=== PATIENT | female | born 1970 | race Caucasian/White ===

== ENCOUNTER → 2022-06-22 | Outpatient (CLI) | payer OTHER ==
--- NOTE | 2022-06-22 16:50 | P.SLEEP ---
History of Present Illness DATE: 06/22/2022 CONSULTATION/NEW PATIENT EVALUATION HISTORY OF PRESENT ILLNESS/SLEEP-WAKE EVALUATION: 52-year-old lady had been evaluated in the sleep center for possible obstructive sleep apnea hypopnea syndrome. SLEEP SCHEDULE: Usually sleep schedule from 910 PM to 79 AM. FALLING ASLEEP: No problems with falling asleep, no TV in bedroom. DURING SLEEP: Patient has loud snoring, witnessed episodes of stop breathing during the sleep, multiple awakenings from sleep up to 10 times with nocturia, positive history of restless leg symptoms, sleep talking, dry mouth, heartburn, sweating. No history of hypnogogical hallucinations, sleep paralysis, or cataplexy. DURING THE DAY/WAKE STATE: In the morning patient wake up tired, falling asleep during the day, has problems with concentration, irritability, depression and anxiety. [place] sleepiness scale is extremely high of 2224. Patient may take up to 2 naps during the day. PAST MEDICAL HISTORY: Hypertension, hyperlipidemia, asthma, lumbar arthritis, acid reflux, thyroid tumor, Chiary malformation, iron deficiency anemia. PAST SURGICAL HISTORY: Left fifth digit surgery. MEDICATIONS: Lisinopril 10 mg once a day, Norvasc 2.5 mg once a day, Prilosec 20 mg once a day, melatonin. SOCIAL HISTORY: Negative for smoking, alcohol consumption occasional. FAMILY HISTORY: Heart problems. REVIEW OF SYSTEMS: Loud snoring, multiple awakenings from sleep, significant excessive daytime sleepiness. No fevers. No double vision. No recent chest pain. No shortness of breath. No abdominal pain. No bleeding episodes. No blood in urine. No seizure episodes. PHYSICAL EXAMINATION: GENERAL: A pleasant patient without any distress. VITAL SIGNS: BP 155/87 , HR 90 , RR 16 , weight 216.2 pounds, height 5 foot 0.5 inches, body mass index 41.4 , temperature 98.4, oxygen saturation at room air 96%. HEENT: PERRLA, EOMI. Evaluation of oropharynx showed tongue protrudes midline, low position of soft palate Mallampati 4. NECK: Supple. No JVD. Thyroid is palpable on the left side. 16 inches in circumference. LUNGS: Clear to percussion and to auscultation. Good air exchange. No wheezing or rhonchi. HEART: S1, S2 regular. No murmurs, gallops or rubs. ABDOMEN: Soft and nontender. Bowel sounds are present. No organomegaly appreciated. Obese EXTREMITIES: No clubbing or cyanosis. NEW PATIENT ESCORT: Awake, alert, and oriented x3. Cranial nerves 2 to 7 intact. There is no fasciculation or atrophy noted. No focal deficits observed. ASSESSMENT: 1. Loud snoring, multiple awakenings from sleep, extremely low position of soft palate Mallampati 4, sleepiness, wide neck 16 inches in circumference. Obstructive sleep apnea hypopnea syndrome. 2. Obesity body mass index 41.4. 3. Extremely high sleepiness following results of [place] Sleepiness Scale 2224 dictated necessity to include narcolepsy and idiopathic hypersomnia in differential diagnosis. 4. History of restless leg symptoms. 5 Chiary malformation. 6 . Thyroid tumor. 7. History of asthma. 8. Acid reflux. 9 . History of iron deficiency anemia. 10. Hyperlipidemia. 11. History of sinuses problems. PLAN: 1. Polysomnography for evaluation of patient's breathing during sleep. 2. CPAP/BiPAP titration if sleep study confirms obstructive sleep apnea- hypopnea syndrome. 3. Preferable position during sleep on the side. 4. No driving if patient feels any sleepiness. Patient is aware of civil and criminal liability for unsafe driving. 5. Sleep hygiene with regular sleep time for at least 7.5-8 hours. 6. Watching and losing weight. Thank you very much for referring this patient for consultation. Sincerely, Yaya Hairston MD, PhD, FAASM. Diplomat of [place] [employer], Sleep Medicine Board by [place] [employer] [place] [employer] Equipment Service Technician of [facility] [place] Sleep Note - Sleep Note Sleep Note: Temperature: Pulse Rate: Respiratory Rate: Blood Pressure: SpO2: Height: Weight: BMI: Neck Circumference:
== END | disposition home or self-care (01) ==
LOC: SLEEP 15:14
PROVIDERS: ATTEND Internal Medicine
DX: G47.33 Obstructive sleep apnea (adult) (pediatric) (principal); D49.7 Neoplasm of unspecified behavior of endocrine glands and other parts of nervous system; E66.9 Obesity, unspecified; I10 Essential (primary) hypertension; E78.5 Hyperlipidemia, unspecified; K21.9 Gastro-esophageal reflux disease without esophagitis; M47.816 Spondylosis without myelopathy or radiculopathy, lumbar region; G93.5 Compression of brain; R06.83 Snoring; Z68.41 Body mass index [BMI] 40.0-44.9, adult; Z99.89 Dependence on other enabling machines and devices; Z87.09 Personal history of other diseases of the respiratory system; Z86.2 Personal history of diseases of the blood and blood-forming organs and certain disorders involving the immune mechanism

== ENCOUNTER → 2022-07-08 | Outpatient (CLI) | payer OTHER ==
--- NOTE | 2022-07-09 23:35 | XR ---
EXAMINATION TYPE: XR ankle complete 3 views LT XR foot complete 3 views LT DATE OF EXAM: 07/08/2022 Comparison: None Clinical History: 52-year-old female, M25.572 Findings: Ankle: There appears to be mild circumferential soft tissue swelling. Ankle mortise is congruent with preser vation of the distal tibiofibular overlap. Talar dome is intact. Small delineation to the Achilles te ndon. No acute fracture, subluxation, dislocation seen. Foot: Small os intermetatarseum noted. Some dorsal spurring at the level of the talar neck incidentally not ed. No acute fracture, subluxation, dislocation. Normal variant accessory ossicle os peroneum. Mild b union formation. Impression: 1. Ankle: Mild circumferential soft tissue swelling. No acute osseous abnormality seen. 2. Foot: Variant anatomy with os peroneum and os intermetatarseum noted. Mild bunion formation. No ac prosper osseous abnormality seen.
== END | disposition home or self-care (01) ==
LOC: RADXRMAIN 11:10
PROVIDERS: ATTEND Internal Medicine
DX: M21.612 Bunion of left foot (principal); M25.572 Pain in left ankle and joints of left foot; M79.89 Other specified soft tissue disorders

== ENCOUNTER → 2022-07-13 | Outpatient (CLI) | payer OTHER ==
--- NOTE | 2022-07-13 15:07 | XR ---
EXAM TYPE: LUMBAR SPINE X RAY SERIES COMPARISON: NONE HISTORY: Pain TECHNIQUE: 3 views are submitted. FINDINGS: Alignment is anatomic. The pedicles are intact. The transverse processes are intact. There is grad e 1 anterolisthesis L4 on L5 and L5 on S1 with severe facet arthropathy L4-5 and L5-S1. There is some moderate degenerative change at the thoracolumbar junction. Vascular calcifications noted. IMPRESSION: 1. Severe facet arthropathy with mild degenerative disc disease L4-5 and L5-S1. Grade 1 anterolisthes is at both levels suspect bilateral foraminal encroachment.
== END | disposition home or self-care (01) ==
LOC: RADXRMAIN 14:25
PROVIDERS: ATTEND Physician Assistant Medical
DX: M51.36 Other intervertebral disc degeneration, lumbar region (principal); M43.16 Spondylolisthesis, lumbar region; M99.73 Connective tissue and disc stenosis of intervertebral foramina of lumbar region; M47.816 Spondylosis without myelopathy or radiculopathy, lumbar region
CPT/HCPCS: 72100

== ENCOUNTER → 2022-07-13 | Outpatient (CLI) | payer OTHER ==
[2022-07-13 14:02] VITALS: BP 146/88; PULSE 107; RESP 16; TEMP 98.5
--- NOTE | 2022-07-13 15:00 | P.PAINPG ---
PQRS Measure Charge Sheet Comment: HISTORY OF PRESENT ILLNESS: 52 yr old female as a referral from Dr Whalen presents today w severe and chronic LBP x 18 yrs secondary to DDD, spondylosis and facet arthropathy without myelopathy for evaluation. Pt states pain level is provoked at 9/10 in intensity, constant, localized in the lumbar spine, sharp in character w shooting pain towards the BLEs. Pain is provoked by walking/ standing for periods of 15 min or more. Pain is alleviated by injections in [place] which provided 100% relief x 4 wks in 2016, sitting, reclining and rest. Admits to acupuncture treatments which were ineffective, chiropractic treatments in 2004- 2005, massage therapy in the past without relief, PT in [place] in 2014 and pt states it all was ineffective in treating pain. Admits to receiving LESIs in [place] in 2016 and [place] in 2013 which were ineffective. Unable to obtain records as pt can not recall name of facilities. Pt states she's filed bankruptcy 2 times and can not afford out of pocket expenses for injections, PT and chiropractry any longer. PMH: HTN, Hyperlipidemia, BIBI, Morbid Obesity, RLS, Chiari Malformation, Asthma, GERD, Iron Deficiency Anemia, ADD/ ADHD PSH: Appendectomy, L 5th digit ORIF SH: Never smoker, Occasional ETOH use, No illicit drug use. 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 FH: MGM- CHF. All: See list Meds: See list REVIEW OF ORGAN SYSTEMS: CONSTITUTIONAL: No fevers or chills. No recent weight loss. NEUROLOGICAL: + numbness and tingling along the distal extremities. No seizure disorders or headaches. MUSCULOSKELETAL: + pain PSYCHIATRIC: Denies current depression or suicidal thoughts. Physical Examinations : Constitutional : Cooperative , not in acute distress . Neurologic : Cranial nerve II to XII intact. No focal neurological deficits. Psychiatric : alert & oriented x 3. Matching mood & appropriate affect. Judgment & insight intact. Musculoskeletal : Cervical Spine Motor strength in the deltoid and biceps: Normal right side. Normal Left side Motor strength biceps and the wrist extensors: Normal right side . Normal left side Motor strength in the triceps muscle: Normal right side. Normal left side Deep tendon reflexes: Normal at the b iceps. Normal at Brachioradialis. Normal at triceps Vertebral body tenderness to deep palpation over Cervical facet loading test: positive bilaterally Spurling test: positive bilaterally Neck distraction test: positive bilaterally Sylvia sign: positive bilaterally Lumbar spine Motor strength lower extremities ,thigh and legs 5/5 Right side , 5/5 Left side Deep tendon reflexes : Normal Knee Jerk. Normal Ankle Jerk Vertebral body tenderness over L4, L5 Lumbar facet Loading Test: positive Right / positive Left Range of motion of the lumbar spine Flexion 30 degrees, extension 10 degrees Straight Leg Raise test: Left/ Right po sitive at <45 degree Divina test: positive right / positive left. Severe tenderness over the Sacroiliac joint on the Right / Left sides Gaenslen test: positive bilaterally Seated flexion test: positive bilaterally. Sacral spine : Severe tenderness over the Sacroiliac joint: right side / left side Range of motion: Flexion of the lumbar spine <60 degrees Range of motion: Extension of the lumbar spine <20 degrees Gaenslen's Test positive Milton's Test positive Divina test: positive right side / left side Thigh Thrust Test Sacral Thrust Test Imaging: None on file Assessment/ Plan : Lumbar DDD Recommendation of x ray of the lumbar spine re: M51.36 May need additional testing if indicated. May return for a re evaluation 2-4 wks. All questions answered. I have spent greater than 30 minutes on patient care today. Dr Alcantar was available by phone for the evaluation of this patient. The time was used to review the medical records including relevant urine studies and Prescription history (MAPs), review of the available imaging, evaluation and examination of the patient, coordination of care with the medical staff and if applicable referring physicians, as well as creation of the medical record Controlled Substance Measures - Controlled Substance Measures Is patient prescribed a controlled substance at discharge?: No
== END ==
LOC: PNWHC3 13:35
PROVIDERS: ATTEND Specialist
DX: M51.36 Other intervertebral disc degeneration, lumbar region (principal); I10 Essential (primary) hypertension; E78.5 Hyperlipidemia, unspecified; G47.33 Obstructive sleep apnea (adult) (pediatric); E66.01 Morbid (severe) obesity due to excess calories; G25.81 Restless legs syndrome; J45.909 Unspecified asthma, uncomplicated; K21.9 Gastro-esophageal reflux disease without esophagitis
CPT/HCPCS: 99202; 99211

== ENCOUNTER → 2022-11-22 | Outpatient (CLI) | payer OTHER ==
--- NOTE | 2022-11-22 16:06 | P.PN ---
Subjective DATE: 11/22/2022 FOLLOW UP VISIT. Patient with obstructive sleep apnea hypopnea syndrome return to sleep center for follow-up visit. Recently patient had sleep study which documented obstructive sleep apnea hypopnea syndrome. Patient was initiated on BPAP therapy and today is first visit after treatment was started. Patient was not able to use PAP equipment secondary to feeling pressure in her ears after starting to use BiPAP equipment. [place] sleepiness scale is significantly increased to 22. I checked information from PAP unit. BPAP unit pressure 13/11 cm H2O. Patient was not able to use BiPAP equipment. MEDICATIONS:1. [place] 2. Prilosec 20 mg once a day 3. Norvasc 2.5 mg once a day 4. Lisinopril 20 mg once a day 5. Adipex 37.5 mg once a day During physical exam: GENERAL: A pleasant patient without any distress. VITAL SIGNS: BP 119/87, HR 109, RR 16 , weight 207.4, temperature 98.2, oxygen saturation at room air 97% . HEENT: PERRLA, EOMI.low position of soft palate, Mallapati 4 . NECK: Supple. No JVD. LUNGS: Clear to percussion and to auscultation. Good air exchange. No wheezing or rhonchi. HEART: S1, S2 regular. ABDOMEN: Soft and nontender.[] EXTREMITIES: No clubbing or cyanosis. FOOD CLERK: Awake, alert, and oriented x3. No focal deficit. I changed pressure in BiPAP unit to a minimal expiratory pressure 4 an maximal inspiratory pressure 12 cm of water, with pressure-support 4 cm of water. But even with the pressure 8 over 4 cm of water patient still had discomfort in her ears. Patient did not feel comfortable with the CPAP pressure 4 centimeters of water. Impressions: 1. Extremely severe Obstructive sleep apnea-hypopnea syndrome, Apnea-hypopnea index 98.2. During titration respiration was on control with BiPAP pressure 15/11 cm of water. Patient was not able to tolerate treatment with BiPAP at the present time, even with a very low level of pressure feels pressure in ears. 2. Obesity. 3. History of restless leg symptoms. 4. Chiary malformation. 5. History of thyroid tumor . 6. History of asthma . 7. History of iron deficiency anemia . 8. Hyperlipidemia . 9. History of sinus problems. Plan: 1. Continue using BPAP equipment every night for the whole night. 2. Patient was recommended to see ear nose and throat physician with the goal to check her ears and nose to find out why she feels discomfort in her ears even with a minimal level of pressure. 3. PAP unit should stay lower then position of the head. 4. Advised patient to remove all remaining water from humidifier canister daily and make it dry after each usage. Refill canister with fresh distilled water before each usage. 5. Sleep hygiene with regular time in bed for at least 8 hours. 6. Precautions related to driving. No driving if feel any sleepiness. 7. I will maintain prescription for PAP supplies including mask, tube, filters. 8. Follow up visit in 2 months or earlier if patient has any problems. 9. Watching and losing weight. Thank you very much for allowing me to participate in the management of your patient. Yaya Hairston MD, PhD, FAASM. Diplomat of [place] [employer], Sleep Medicine Board by [place] [employer] Manager Of Planning [facility]
== END ==
LOC: 3 N SLEEP 14:22
PROVIDERS: ATTEND Internal Medicine
DX: G47.33 Obstructive sleep apnea (adult) (pediatric) (principal); E66.9 Obesity, unspecified; G25.81 Restless legs syndrome; E78.5 Hyperlipidemia, unspecified; D64.9 Anemia, unspecified; Q07.8 Other specified congenital malformations of nervous system; J45.909 Unspecified asthma, uncomplicated; Z79.899 Other long term (current) drug therapy; Z85.850 Personal history of malignant neoplasm of thyroid; Z99.89 Dependence on other enabling machines and devices; Z88.8 Allergy status to other drugs, medicaments and biological substances; Z88.5 Allergy status to narcotic agent; Z79.51 Long term (current) use of inhaled steroids
CPT/HCPCS: 99212

== ENCOUNTER → 2023-01-03 | Outpatient (CLI) | payer OTHER ==
--- NOTE | 2023-01-16 18:34 | MM ---
Reason for Exam: Screening (asymptomatic). Last mammogram was performed 6 year(s) and 9 month(s) ago. Patient History: Menarche at age 13. First Full-Term at age 22. Maternal aunt had breast cancer, age 80. Risk Values: Lesia 5 year model risk: 0.9%. NCI Lifetime model risk: 6.9%. Prior Study Comparison: 02/02/2016 Bilateral Screening Mammogram, [facility]. 03/24/2016 Right Diagnostic Mammogram, [facility]. Tissue Density: There are scattered fibroglandular densities. Findings: Analyzed By CAD. There is no suspicious group of microcalcifications or new suspicious mass in either breast. Overall Assessment: Negative, BI-RAD 1 Management: Screening Mammogram of both breasts in 1 year. . Patient should continue monthly self-breast exams. A clinical breast exam by your physician is recommended on an annual basis. This exam should not preclude additional follow-up of suspicious palpable abnormalities. Note on Lesia scores and lifetime risk: 1. A Lesia score greater than 3% is considered moderate risk. If this is the case, consider specialist referral to assess eligibility for a risk reducing agent. 2. If overall lifetime risk for the development of breast cancer is 20% or higher, the patient may qualify for future screening with alternating mammogram and breast MRI. Electronically signed and approved by: Phil Gomez M.D. Radiologist
== END | disposition home or self-care (01) ==
LOC: RADMAMWWP 16:43
PROVIDERS: ATTEND Internal Medicine
DX: Z12.31 Encounter for screening mammogram for malignant neoplasm of breast (principal); Z80.3 Family history of malignant neoplasm of breast
CPT/HCPCS: 77063; 77067

== ENCOUNTER 2023-01-21 21:41 | Emergency (ER) | payer OTHER ==
[2023-01-21] MEDS ORDERED: ALBUTEROL NEBULIZED 2.5 MG/3 ML INHALATION STA (22:11)
--- NOTE | 2023-01-21 22:47 | ED ---
SOB HPI - General Chief Complaint: Shortness of Breath Stated Complaint: Asthma Time Seen by Provider: 01/21/23 21:49 Source: patient Mode of arrival: ambulatory Limitations: no limitations - History of Present Illness Initial Comments: This patient is a 52-year-old woman who states she has history of asthma. She states she has been having a flare that she thinks may have been ALLERGY-induced going back about 3 weeks. She had seen physician and was feeling better after starting medications, but states that symptoms are recurring now. Patient notes that she is on prednisone taper and is down to either 10 or 20 mg dose right now. Patient denies fever or chills. No productive cough. No chest pain area MD Complaint: shortness of breath, cough Onset/Timin -: week(s) Severity scale (1-10): 0 Consistency: constant Improves With: medication Worsens With: nothing Known History Of: asthma Associated Symptoms: denies other symptoms Treatments Prior to Arrival: other - Related Data Home Oxygen Therapy: No Previous Rx's Medication Instructions Recorded Albuterol Inhaler [Ventolin Hfa 1 - 2 puff INHALATION Q4HR PRN #1 10/01/22 Inhaler] each Azithromycin [Zithromax Z Pack] 1 tab PO DIRECTED #6 tab 10/01/22 predniSONE 50 mg PO DAILY #5 tab 10/01/22 Allergies Allergy/AdvReac Type Severity Reaction Status Date / Time bacitracin [From Cortisporin] Allergy Unknown Verified 10/01/22 22:20 hydrocortisone Allergy Unknown Verified 10/01/22 22:20 [From Cortisporin] neomycin [From Cortisporin] Allergy Unknown Verified 10/01/22 22:20 polymyxin B Allergy Unknown Verified 10/01/22 22:20 [From Cortisporin] Review of Systems ROS Statement: Those systems with pertinent positive or pertinent negative responses have been documented in the HPI. ROS Other: All systems not noted in ROS Statement are negative. Constitutional: Denies: fever, chills, weakness ENT: Denies: throat pain Respiratory: Reports: cough, dyspnea, wheezes. Denies: hemoptysis Cardiovascular: Denies: chest pain, palpitations, orthopnea, edema, syncope Gastrointestinal: Denies: abdominal pain, nausea, vomiting, diarrhea Genitourinary: Denies: dysuria, hematuria Musculoskeletal: Denies: back pain Skin: Denies: rash Neurological: Denies: headache, weakness Past Medical History Past Medical History: Asthma, Hyperlipidemia, Hypertension, Sleep Apnea/CPA P/BIPAP Additional Past Medical History / Comment(s): Thyroid mass History of Any Multi-Drug Resistant Organisms: None Reported Past Surgical History: Appendectomy, Orthopedic Surgery Past Psychological History: No Psychological Hx Reported Smoking Status: Never smoker Past Alcohol Use History: None Reported Past Drug Use History: None Reported General Exam Limitations: no limitations General appearance: alert, in distress (Patient appears in mild respiratory distress) Head exam: Present: atraumatic, normocephalic Eye exam: Present: normal appearance. Absent: scleral icterus, conjunctival injection ENT exam: Present: normal oropharynx Neck exam: Present: normal inspection Respiratory exam: Present: respiratory distress, wheezes, decreased breath sounds, prolonged expiratory. Absent: rales, rhonchi, stridor Cardiovascular Exam: Present: normal rhythm, tachycardia, normal heart sounds. Absent: systolic murmur, diastolic murmur, rubs, gallop GI/Abdominal exam: Present: soft. Absent: distended, tenderness, guarding, rebound, rigid, mass Extremities exam: Present: normal inspection, normal capillary refill. Absent: pedal edema, calf tenderness Back exam: Present: normal inspection. Absent: CVA tenderness (R), CVA t enderness (L) Neurological exam: Present: alert Skin exam: Present: warm, dry, intact, normal color. Absent: rash Course Vital Signs 01/21/23 01/21/23 01/21/23 21:41 22:03 22:15 Temperature 98.4 F Pulse Rate 140 H 113 H Respiratory 30 H 24 Rate Blood Pressure 147/96 O2 Sat by Pulse 98 Oximetry 01/21/23 01/21/23 01/21/23 22:26 23:06 23:08 Temperature Pulse Rate 115 H 105 H 103 H Respiratory 14 20 Rate Blood Pressure 148/104 141/96 O2 Sat by Pulse 97 94 L Oximetry 01/22/23 01/22/23 01/22/23 01:05 01:15 02:58 Temperature 97.8 F Pulse Rate 93 96 90 Respiratory 16 Rate Blood Pressure 158/99 O2 Sat by Pulse 98 Oximetry Medical Decision Making - Medical Decision Making The patient had 2 view chest x-ray which I interpreted as negative for acute infiltrate, pneumothorax, congestive heart failure Was pt. sent in by a medical professional or institution (WAYLON Garcia, KEY ENTRY OPERATOR, urgent care, hospital, or [facility]...) When possible be specific @ -[No] Did you speak to anyone other than the patient for history (EMS, parent, family, police, friend...)? What history was obtained from this source @ -[No] Did you review nursing and triage notes (agree or disagree)? Why? @ -[I reviewed and agree with nursing and triage notes] Were old charts reviewed (outside hosp., previous admission, EMS record, old EKG, old radiological studies, urgent care reports/EKG's, [facility] records)? Report findings @ -[No old charts were reviewed] Differential Diagnosis (chest pain, altered mental status, abdominal pain women, abdominal pain men, vaginal bleeding, weakness, fever, dyspnea, syncope, headache, dizziness, GI bleed, back pain, seizure, CVA, palpatations, mental health, musculoskeletal)? @ -[Differential Dyspnea: Coronary syndrome, arrhythmia, tamponade, asthma, COPD, pulmonary embolism, pneumonia, pneumothorax, pulmonary effusion, anaphylaxis, diabetic ketoacidosis, flailed chest, pulmonary contusion, diaphragmatic rupture, anemia, neuromuscular, this is not meant to be an all-inclusive list. EKG interpreted by me (3pts min.). @ -[I interpreted as above X-rays interpreted by me (1pt min.). @ -[I interpreted as above CT interpreted by me (1pt min.). @ -[None done] U/S interpreted by me (1pt. min.). @ -[None done] What testing was considered but not performed or refused? (CT, X-rays, U/S, labs)? Why? @ -[None] What meds were considered but not given or refused? Why? @ -[None] Did you discuss the management of the patient with other professionals (professionals i.e. WAYLON Garcia, KEY ENTRY OPERATOR, lab, RT, psych nurse, social service technician, cutting and splicing supervisor, teacher, hydrographical technical officer, case making machine operator)? Give summary @ -[No] Was smoking cessation discussed for >3mins.? @ -[No] Was critical care preformed (if so, how long)? @ -[No] Were there social determinants of health that impacted care today? How? (Homelessness, low income, unemployed, alcoholism, drug addiction, transportation, low edu. Level, literacy, decrease access to med. care, fpc, rehab)? @ -[No] Was there de-escalation of care discussed even if they declined (Discuss DNR or withdrawal of care, Hospice)? DNR status @ -[No] What co-morbidities impacted this encounter? (DM, HTN, Smoking, COPD, CAD, Cancer, CVA, ARF, Chemo, Hep., AIDS, mental health diagnosis, sleep apnea, morbid obesity)? @ -[None] Was patient admitted / discharged? Hospital course, mention meds given and route, prescriptions, significant lab abnormalities, going to OR and other pertinent info. @ -[Patient is 52-year-old woman presenting with mild to moderate respiratory distress. She has history of asthma and states this is very similar. The patient has had good response to treatment here. We will increase her steroid taper and she will left close follow-up. We discussed appropriate return parameters. Undiagnosed new problem with uncertain prognosis? @ -[No] Drug Therapy requiring intensive monitoring for toxicity (Heparin, Nitro, Insulin, Cardizem)? @ -[No] Were any procedures done? @ -[No] Diagnosis/symptom? @ -[Acute exacerbation of asthma Acute, or Chronic, or Acute on Chronic? @ -[Acute Uncomplicated (without systemic symptoms) or Complicated (systemic symptoms)? @ -[complicated Side effects of treatment? @ -[No] Exacerbation, Progression, or Severe Exacerbation? @ -[Exacerbation Poses a threat to life or bodily function? How? (Chest pain, USA, IA, pneumonia, PE, COPD, DKA, ARF, appy, cholecystitis, CVA, Diverticulitis, Homicidal, Suicidal, threat to staff... and all critical care pts) @ -[No] - Lab Data Result diagrams: 01/21/23 22:05 01/21/23 22:05 Lab Results 01/21/23 01/21/23 01/21/23 Range/Units 22:05 22:05 22:05 WBC 10.9 H (3.8-10.6) k/uL RBC 4.62 (3.80-5.40) m/uL Hgb 12.9 (11.4-16.0) gm/dL Hct 38.9 (34.0-46.0) % MCV 84.2 (80.0-100.0) fL MCH 28.0 (25.0-35.0) pg MCHC 33.2 (31.0-37.0) g/dL RDW 13.9 (11.5-15.5) % Plt Count 318 (150-450) k/uL MPV 8.4 Neutrophils % 76 % Lymphocytes % 18 % Monocytes % 4 % Eosinophils % 1 % Basophils % 0 % Neutrophils # 8.3 H (1.3-7.7) k/uL Lymphocytes # 2.0 (1.0-4.8) k/uL Monocytes # 0.4 (0-1.0) k/uL Eosinophils # 0.1 (0-0.7) k/uL Basophils # 0.0 (0-0.2) k/uL PT 10.5 (10.0-12.5) sec INR 0.9 (<1.2) APTT 20.9 L (22.0-30.0) sec D-Dimer 0.28 (<0.60) mg/L FEU Sodium 139 (137-145) mmol/L Potassium 4.1 (3.5-5.1) mmol/L Chloride 106 (98-107) mmol/L Carbon Dioxide 19 L (22-30) mmol/L Anion Gap 14 mmol/L BUN 22 H (7-17) mg/dL Creatinine 0.63 (0.52-1.04) mg/dL Est GFR (CKD-EPI)AfAm >90 (>60 ml/min/1.73 sqM) Est GFR (CKD-EPI)NonAf >90 (>60 ml/min/1.73 sqM) Glucose 140 H (74-99) mg/dL Lactic Ac Sepsis Rflx Plasma Lactic Acid Mariusz (0.7-2.0) mmol/L Calcium 9.5 (8.4-10.2) mg/dL Magnesium 2.1 (1.6-2.3) mg/dL Total Bilirubin 0.4 (0.2-1.3) mg/dL AST 28 (14-36) U/L ALT 30 (4-34) U/L Alkaline Phosphatase 70 (38-126) U/L Troponin I (0.000-0.034) ng/mL NT-Pro-B Natriuret Pep 54 pg/mL Total Protein 7.7 (6.3-8.2) g/dL Albumin 4.6 (3.5-5.0) g/dL Urine Color Urine Appearance (Clear) Urine pH (5.0-8.0) Ur Specific [place] (1.001-1.035) Urine Protein (Negative) Urine Glucose (UA) (Negative) Urine Ketones (Negative) Urine Blood (Negative) Urine Nitrite (Negative) Urine Bilirubin (Negative) Urine Urobilinogen (<2.0) mg/dL Ur Leukocyte Esterase (Negative) Urine RBC (0-5) /hpf Urine WBC (0-5) /hpf Ur Squamous Epith Cells (0-4) /hpf Urine Bacteria (None) /hpf Hyaline Casts (0-2) /lpf Urine Mucus (None) /hpf Coronavirus (PCR) (Not Detectd) 01/21/23 01/21/23 01/21/23 Range/Units 22:05 22:05 22:05 WBC (3.8-10.6) k/uL RBC (3.80-5.40) m/uL Hgb (11.4-16.0) gm/dL Hct (34.0-46.0) % MCV (80.0-100.0) fL MCH (25.0-35.0) pg MCHC (31.0-37.0) g/dL RDW (11.5-15.5) % Plt Count (150-450) k/uL MPV Neutrophils % % Lymphocytes % % Monocytes % % Eosinophils % % Basophils % % Neutrophils # (1.3-7.7) k/uL Lymphocytes # (1.0-4.8) k/uL Monocytes # (0-1.0) k/uL Eosinophils # (0-0.7) k/uL Basophils # (0-0.2) k/uL PT (10.0-12.5) sec INR (<1.2) APTT (22.0-30.0) sec D-Dimer (<0.60) mg/L FEU Sodium (137-145) mmol/L Potassium (3.5-5.1) mmol/L Chloride (98-107) mmol/L Carbon Dioxide (22-30) mmol/L Anion Gap mmol/L BUN (7-17) mg/dL Creatinine (0.52-1.04) mg/dL Est GFR (CKD-EPI)AfAm (>60 ml/min/1.73 sqM) Est GFR (CKD-EPI)NonAf (>60 ml/min/1.73 sqM) Glucose (74-99) mg/dL Lactic Ac Sepsis Rflx Plasma Lactic Acid Mariusz 2.4 H* (0.7-2.0) mmol/L Calcium (8.4-10.2) mg/dL Magnesium (1.6-2.3) mg/dL Total Bilirubin (0.2-1.3) mg/dL AST (14-36) U/L ALT (4-34) U/L Alkaline Phosphatase (38-126) U/L Troponin I <0.012 (0.000-0.034) ng/mL NT-Pro-B Natriuret Pep pg/mL Total Protein (6.3-8.2) g/dL Albumin (3.5-5.0) g/dL Urine Color Urine Appearance (Clear) Urine pH (5.0-8.0) Ur Specific [place] (1.001-1.035) Urine Protein (Negative) Urine Glucose (UA) (Negative) Urine Ketones (Negative) Urine Blood (Negative) Urine Nitrite (Negative) Urine Bilirubin (Negative) Urine Urobilinogen (<2.0) mg/dL Ur Leukocyte Esterase (Negative) Urine RBC (0-5) /hpf Urine WBC (0-5) /hpf Ur Squamous Epith Cells (0-4) /hpf Urine Bacteria (None) /hpf Hyaline Casts (0-2) /lpf Urine Mucus (None) /hpf Coronavirus (PCR) Not Detected (Not Detectd) 01/21/23 01/22/23 01/22/23 Range/Units 23:37 00:10 02:16 WBC (3.8-10.6) k/uL RBC (3.80-5.40) m/uL Hgb (11.4-16.0) gm/dL Hct (34.0-46.0) % MCV (80.0-100.0) fL MCH (25.0-35.0) pg MCHC (31.0-37.0) g/dL RDW (11.5-15.5) % Plt Count (150-450) k/uL MPV Neutrophils % % Lymphocytes % % Monocytes % % Eosinophils % % Basophils % % Neutrophils # (1.3-7.7) k/uL Lymphocytes # (1.0-4.8) k/uL Monocytes # (0-1.0) k/uL Eosinophils # (0-0.7) k/uL Basophils # (0-0.2) k/uL PT (10.0-12.5) sec INR (<1.2) APTT (22.0-30.0) sec D-Dimer (<0.60) mg/L FEU Sodium (137-145) mmol/L Potassium (3.5-5.1) mmol/L Chloride (98-107) mmol/L Carbon Dioxide (22-30) mmol/L Anion Gap mmol/L BUN (7-17) mg/dL Creatinine (0.52-1.04) mg/dL Est GFR (CKD-EPI)AfAm (>60 ml/min/1.73 sqM) Est GFR (CKD-EPI)NonAf (>60 ml/min/1.73 sqM) Glucose (74-99) mg/dL Lactic Ac Sepsis Rflx Y Plasma Lactic Acid Mariusz 1.2 (0.7-2.0) mmol/L Calcium (8.4-10.2) mg/dL Magnesium (1.6-2.3) mg/dL Total Bilirubin (0.2-1.3) mg/dL AST (14-36) U/L ALT (4-34) U/L Alkaline Phosphatase (38-126) U/L Troponin I (0.000-0.034) ng/mL NT-Pro-B Natriuret Pep pg/mL Total Protein (6.3-8.2) g/dL Albumin (3.5-5.0) g/dL Urine Color Yellow Urine Appearance Clear (Clear) Urine pH 5.5 (5.0-8.0) Ur Specific [place] 1.031 (1.001-1.035) Urine Protein Trace H (Negative) Urine Glucose (UA) Negative (Negative) Urine Ketones Negative (Negative) Urine Blood Negative (Negative) Urine Nitrite Negative (Negative) Urine Bilirubin Negative (Negative) Urine Urobilinogen <2.0 (<2.0) mg/dL Ur Leukocyte Esterase Moderate H (Negative) Urine RBC 2 (0-5) /hpf Urine WBC 5 (0-5) /hpf Ur Squamous Epith Cells 3 (0-4) /hpf Urine Bacteria Rare H (None) /hpf Hyaline Casts 19 H (0-2) /lpf Urine Mucus Few H (None) /hpf Coronavirus (PCR) (Not Detectd) - EKG Data -: EKG Interpreted by Ar EKG shows normal: sinus rhythm, axis (Borderline right axis), intervals (Normal) Rate: tachycardia (Rate 128 bpm) Disposition Clinical Impression: Asthma exacerbation Disposition: HOME SELF-CARE Condition: Good Instructions (If sedation given, give patient instructions): Asthma (ED) Is patient prescribed a controlled substance at d/c from ED?: No Referrals: None,Stated [REFERRING] - 1-2 days Jose Luis Russell MD [STAFF PHYSICIAN] - 1-2 days Glen Whalen MD [Primary Care Provider] - 1-2 days
[2023-01-21 23:17] LABS: Basophils % (A) 0 %; Eosinophils # (A) 0.1 k/uL (0-0.7); Eosinophils % (A) 1 %; HCT 38.9 % (34.0-46.0); HGB 12.9 gm/dL (11.4-16.0); Lymphocytes % (A) 18 %; MCHC 33.2 g/dL (31.0-37.0); MCV 84.2 fL (80.0-100.0); Mean Platelet Volume 8.4; Monocytes # (A) 0.4 k/uL (0-1.0); Monocytes % (A) 4 %; Neutrophils # (A) 8.3 k/uL (1.3-7.7); Neutrophils % (A) 76 %; Platelet Count 318 k/uL (150-450); RBC 4.62 m/uL (3.80-5.40); RDW 13.9 % (11.5-15.5); WBC 10.9 k/uL (3.8-10.6)
[2023-01-21 23:31] LABS: ALT 30 U/L (4-34); AST 28 U/L (14-36); African American GFR (CKD) >90 (>60 ml/min/1.73 sqM); Albumin 4.6 g/dL (3.5-5.0); Alkaline Phosphatase 70 U/L (38-126); Anion Gap 14 mmol/L; Blood Urea Nitrogen 22 mg/dL (7-17); Calcium 9.5 mg/dL (8.4-10.2); Carbon Dioxide 19 mmol/L (22-30); Chloride 106 mmol/L (98-107); Glucose 140 mg/dL (74-99); Magnesium 2.1 mg/dL (1.6-2.3); Non-African American GFR(CKD) >90 (>60 ml/min/1.73 sqM); Potassium 4.1 mmol/L (3.5-5.1); Sodium 139 mmol/L (137-145); Total Bilirubin 0.4 mg/dL (0.2-1.3); Total Protein 7.7 g/dL (6.3-8.2)
[2023-01-21 23:39] LABS: NT-Pro-B-Type Natriuretic Pept 54 pg/mL
[2023-01-21 23:40] LABS: INR 0.9 (<1.2); Prothrombin Time 10.5 sec (10.0-12.5)
[2023-01-21 23:48] LABS: Partial Thromboplastin Time 20.9 sec (22.0-30.0)
[2023-01-22] MEDS ORDERED: SODIUM CHLORIDE 0.9% 500 ML 500 ML IV STA (00:14)
--- NOTE | 2023-01-22 00:17 | XR ---
EXAM: XR Chest, 2 Views CLINICAL HISTORY: ITS.REASON XR Reason: difficulty breathing TECHNIQUE: Frontal and lateral views of the chest. COMPARISON: 10/01/2022. FINDINGS: Lungs: Unremarkable. No consolidative changes. Pleural space: Unremarkable. No pneumothorax. No pleural effusions. Heart: Unremarkable. No cardiomegaly. Mediastinum: Cardiomediastinal silhouette unremarkable. Bones/joints: Moderate to severe degenerative disc disease of the thoracic spine. Vasculature: Atherosclerotic disease. Upper abdomen: Minimal eventration of the right hemidiaphragm. IMPRESSION: No active disease, similar to that noted on the previous study.
[2023-01-22 00:31] LABS: Appearance,Urine Clear (Clear); Bacteria,Urine Rare /hpf; Bilirubin,Urine Negative (Negative); Blood,Urine Negative (Negative); Color,Urine Yellow; Glucose,Urine (UA) Negative (Negative); Hyaline Casts,Urine 19 /lpf (0-2); Ketones,Urine Negative (Negative); Leukocyte Esterase,Urine Moderate (Negative); Mucus,Urine Few /hpf; Nitrite,Urine Negative (Negative); PH, Urine 5.5 (5.0-8.0); Protein,Urine Trace (Negative); RBC,Urine 2 /hpf (0-5); Specific Gravity,Urine 1.031 (1.001-1.035); Squamous Epithelial Cell,Urine 3 /hpf (0-4); Urobilinogen,Urine <2.0 mg/dL (<2.0); WBC,Urine 5 /hpf (0-5)
[2023-01-22] MEDS ORDERED: ALBUTEROL NEBULIZED 2.5 MG/3 ML INHALATION STA (00:33)
[2023-01-22 03:10] VITALS: BP 158/99; PULSE 90; RESP 16; TEMP 97.8
== END 2023-01-22 03:04 | disposition home or self-care (01) ==
LOC: EC 21:41
DX: J45.901 Unspecified asthma with (acute) exacerbation (principal); I10 Essential (primary) hypertension; G47.30 Sleep apnea, unspecified; Z88.8 Allergy status to other drugs, medicaments and biological substances; Z20.822 Contact with and (suspected) exposure to COVID-19
CPT/HCPCS: 36415; 71046; 80053; 81001; 83605; 83735; 83880; 84484; 85025; 85379; 85610; 85730; 87040; 87635; 93005; 94640; 99285

== ENCOUNTER → 2023-04-04 | Outpatient (CLI) | payer OTHER ==
--- NOTE | 2023-04-04 16:33 | P.PN ---
Subjective DATE: 04/04/2023 FOLLOW UP VISIT. Patient returned to sleep center for follow-up visit for treatment of severe obstructive sleep apnea hypopnea syndrome, extremely severe excessive daytime sleepiness and ADHD. I so patient in November 2022. At that time because patient developed some ear problems well using sure BiPAP she was recommended to see ear nose and throat physician. She was seen by ear nose and throat physician, but still continued to have significant ear problems. Patient returned sure BiPAP unit. She continued to have extremely significant sleepiness during the day. [place] sleepiness scale is 20.. MEDICATIONS:1. Lisinopril 10 mg once a day 2. Omeprazole 20 mg once a day 3. , Caffeine tablets During physical exam: GENERAL: A pleasant patient without any distress. VITAL SIGNS: BP 114/82, HR 95, RR 12 , weight 207.2, temperature 98.1, oxygen saturation at room air 97% . HEENT: PERRLA, EOMI. NECK: Supple. No JVD. LUNGS: Clear to percussion and to auscultation. Good air exchange. No wheezing or rhonchi. HEART: S1, S2 regular. ABDOMEN: Soft and nontender. EXTREMITIES: No clubbing or cyanosis. 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 No focal deficit. Impressions: 1. Obstructive sleep apnea-hypopnea syndrome in severe range, apnea-hypopnea index 98.2. Patient was not able to tolerate Pap treatment secondary to pressure and ear problems. 2. Extremely high level of significant excessive daytime sleepiness with [place] Sleepiness Scale of 20. 3. ADHD. 4. History of chiary malformation. 5. History of thyroid tumor. 6. ALLERGY. 7. History of asthma. 8. History of iron deficiency anemia. 9. Hyperlipidemia. 10 sinuses problems Plan: 1. Evaluation by ear nose and throat physician for ear problems 2. Sleep hygiene with regular time in bed for at least 8 hours. 3. Daytime naps permitted 4. Precautions related to driving. No driving if feel any sleepiness. Patient is aware about civil and criminal liability for unsafe driving, promised to follow recommendations. 5. I will start patient on Adderall 10 mg twice a day for ADHD and significant excessive daytime sleepiness. 6. Patient should restart treatment with positive air pressure for treatment of obstructive sleep apnea hypopnea syndrome. 7. Follow-up visit in one months. Thank you very much for allowing me to participate in the management of your patient. Yaya Hairston MD, PhD, FAASM. Diplomat of [place] [employer], Sleep Medicine Board by [place] [employer] [facility] [place]
== END ==
LOC: 3 N SLEEP 15:29
PROVIDERS: ATTEND Internal Medicine
DX: G47.33 Obstructive sleep apnea (adult) (pediatric) (principal); G47.10 Hypersomnia, unspecified; F90.9 Attention-deficit hyperactivity disorder, unspecified type; J45.909 Unspecified asthma, uncomplicated; E78.5 Hyperlipidemia, unspecified; Z85.850 Personal history of malignant neoplasm of thyroid; Z87.798 Personal history of other (corrected) congenital malformations; Z86.2 Personal history of diseases of the blood and blood-forming organs and certain disorders involving the immune mechanism; Z88.8 Allergy status to other drugs, medicaments and biological substances; Z88.1 Allergy status to other antibiotic agents; Z88.5 Allergy status to narcotic agent; Z79.899 Other long term (current) drug therapy
CPT/HCPCS: 99212

== ENCOUNTER → 2023-04-17 | Outpatient (CLI) | payer OTHER ==
--- NOTE | 2023-04-19 09:41 | MR ---
EXAMINATION TYPE: MR lumbar spine wo con DATE OF EXAM: 04/17/2023 4:07 PM CLINICAL INDICATION:Female, 52 years old with history of M54.50 back pain; [facility], COMPARISON: 07/13/2022. TECHNIQUE: Multi planar, multi sequence imaging was performed utilizing: T1-weighted, T2-weighted, a nd turbo inversion recovery imaging of the lumbar spine. IV Contrast: (None if empty) FINDINGS: Alignment: The lumbar vertebral bodies have preserved heights with grade 1 anterolisthesis of L4 on L 5. Cord: The conus medullaris and the distal spinal cord appear unremarkable with regards to their signa l intensity and morphology. Bones/Discs: Minimal osteophytes and facet joint arthropathy throughout the spine. Intervertebral dis c signal is maintained. T12-L1: No evidence of significant spinal canal stenosis or neural foraminal stenosis. L1-L2: No evidence of significant spinal canal stenosis or neural foraminal stenosis. L2-L3: No evidence of significant spinal canal stenosis or neural foraminal stenosis. L3-L4: Disc bulge and facet joint arthropathy result in mild spinal canal and mild bilateral neural f oraminal stenosis. L4-L5: Disc uncovering from grade 1 anterolisthesis and facet joint arthropathy with mild spinal aleksander l stenosis and mild to moderate bilateral neural foraminal stenosis. L5-S1: The disc is rounded posterior morphology without significant spinal canal stenosis. Facet join t arthropathy with mild bilateral neural foraminal stenosis. No significant spinal canal or neural foraminal stenosis in the remainder of the visualized levels. Other findings: Layering gallstones in the gallbladder lumen. IMPRESSION: 1. No definitive evidence of disc herniation or significant spinal canal stenosis. 2. Grade 1 anterolisthesis of L4 and L5 with mild to moderate bilateral neural foraminal stenosis. 3. Mild disc degeneration with associated osteoarthritic changes.
== END | disposition home or self-care (01) ==
LOC: RADMRIMAIN 11:27
PROVIDERS: ATTEND Internal Medicine
DX: M43.16 Spondylolisthesis, lumbar region (principal); M47.816 Spondylosis without myelopathy or radiculopathy, lumbar region; M99.73 Connective tissue and disc stenosis of intervertebral foramina of lumbar region; M51.36 Other intervertebral disc degeneration, lumbar region
CPT/HCPCS: 72148

== ENCOUNTER → 2023-07-04 | Outpatient (CLI) | payer OTHER ==
--- NOTE | 2023-07-04 19:41 | XR ---
EXAMINATION TYPE: XR cervical spine comp DATE OF EXAM: 07/04/2023 COMPARISON: None HISTORY: 53-year-old female neck pain and stiffness TECHNIQUE: 5 views FINDINGS: No predental space widening or prevertebral soft tissue swelling. Degenerative change at the C1 dens articulation. Mild to moderate degenerative disc disease and endplate spondylosis C5-C6 and C6/C7. Th ere is straightening of the normal cervical lordosis but with preserved alignment. Mild to moderate s cattered facet and uncovertebral joint arthropathy is present. On the right, changes result in moderate bony neuroforaminal narrowing at C3-C4 and mild to moderate at C5-C6. On the left, there is mild bony neuroforaminal narrowing at C3-C4 and C5-C6. Normal odontoid view. IMPRESSION: 1. Mild to moderate spondylitic change, especially C5-C7 levels. No prevertebral soft tissue swelling or malalignment. 2. On the right, changes result in moderate bony neuroforaminal narrowing at C3-C4. Additional variab le neural foraminal narrowing as outlined above.
== END | disposition home or self-care (01) ==
LOC: RADXRMAIN 14:45
PROVIDERS: ATTEND Internal Medicine
DX: M47.812 Spondylosis without myelopathy or radiculopathy, cervical region (principal); M99.71 Connective tissue and disc stenosis of intervertebral foramina of cervical region
CPT/HCPCS: 72050

== ENCOUNTER → 2023-07-25 | Outpatient (CLI) | payer OTHER ==
--- NOTE | 2023-07-25 21:59 | MR ---
EXAMINATION TYPE: MR cervical spine wo con DATE OF EXAM: 07/25/2023 9:38 PM CLINICAL INDICATION:Female, 53 years old with history of M54.2 CERVICALGIA; PHH, Neck pain, stiffness , numbness and tingling down both arms. COMPARISON: None. TECHNIQUE: Multi planar, multi sequence imaging was performed utilizing: T1-weighted, T2-weighted, an d turbo inversion recovery imaging of the cervical spine. IV Contrast: None FINDINGS: Alignment: There is straightening and mild reversal the normal cervical lordotic curve. Grade 1 anter olisthesis of C6 on C7. Bones: No suspicious osseous marrow signal is identified. Cord: The spinal cord is unremarkable with regards to their signal intensity and morphology. Discs: Multilevel disc desiccation is identified. C2-C3: No significant disc pathology. The spinal canal and neural foramen are patent. C3-C4: Right lateral/foraminal disc protrusion is identified. The spinal canal and left foramen are p atent there is severe right neural foraminal stenosis. C4-C5: Disc osteophyte complex is present. The spinal canal is patent. No neural foraminal stenosis. C5-C6: Posterior disc osteophyte complex is identified. There is mild spinal canal stenosis. Moderat e bilateral neural foraminal stenosis. C6-C7: Central disc osteophyte complex is identified which creates mild to moderate mass effect upon the anterior thecal sac with preservation of the CSF space posteriorly. The neural foramen are patent at this level. C7-T1: Disc osteophyte complex is present. The spinal canal is patent. No neural foraminal stenosis. IMPRESSION: 1. No evidence of severe spinal canal stenosis. 2. Degenerative changes including disc osteophyte complexes creating mild to moderate stenosis of the spinal canal at the C6-C7 level and multilevel neural foraminal stenosis, most pronounced at C3-C4 w ith severe right neural foraminal stenosis.
== END | disposition home or self-care (01) ==
LOC: RADMRIMAIN 18:15
PROVIDERS: ATTEND Internal Medicine
DX: M47.812 Spondylosis without myelopathy or radiculopathy, cervical region (principal); M25.78 Osteophyte, vertebrae; M48.02 Spinal stenosis, cervical region
CPT/HCPCS: 72141

== ENCOUNTER → 2023-08-10 | Outpatient (CLI) | payer OTHER ==
--- NOTE | 2023-08-12 17:41 | US ---
EXAMINATION TYPE: US thyroid st tissue head/neck DATE OF EXAM: 08/10/2023 COMPARISON: US 04/14/2022 CLINICAL INDICATION: Female, 53 years old with history of R22.0 LOCALIZED SWELLING, MASS AND LUMP, HE AD; Swelling. GLAND SIZE: Right Lobe: 4.8 x 1.7 x 1.5 cm Overall Parenchyma: homogeneous Left Lobe: 5.4 x 2.2 x 2.4 cm Overall Parenchyma: heterogeneous Isthmus Thickness: 0.27 cm NODULES RIGHT: # of nodules measured on right: 0 LEFT: # of nodules measured on left: 1 1. 3.3 X 2.0 x 1.9 cm, mid mid, solid or almost completely solid, hypoechoic nodule, which is wider than tall, with smooth margins, with echogenic foci. TR 4. Prior size: 2.4 x 1.9 x 1.9 cm ISTHMUS: # of nodules measured in the isthmus: 0 Bilateral neck scanned, lymph node seen within the right submandibular area: 2.9 x 1.9 x 1.0 cm. Jose Elias ex measures 0.9 cm*. Normal central fatty hilum demonstrated. IMPRESSION: 1. Increased size of left thyroid lobe 3.3 cm TR 4 nodule, previously measured up to 2.4 cm. Recomme nd FNA. 2. Mildly enlarged right submandibular region lymph node. May be reactive. Consider follow-up ultras ound in 3-6 months.
== END | disposition home or self-care (01) ==
LOC: RADUSWWP 08:38
PROVIDERS: ATTEND Internal Medicine
DX: E04.1 Nontoxic single thyroid nodule (principal)
CPT/HCPCS: 76536

== ENCOUNTER → 2023-10-05 | Outpatient (CLI) | payer OTHER ==
--- NOTE | 2023-10-05 11:20 | US ---
EXAMINATION TYPE: US abdomen complete DATE OF EXAM: 10/05/2023 COMPARISON: MRI lumbar spine 04/17/2023 CLINICAL INDICATION: Female, 53 years old with history of R10.84 GENERALIZED ABD PAIN; Patient states MRI showed gall stones TECHNIQUE: Multiple sonographic images of the abdomen are obtained. FINDINGS: EXAM MEASUREMENTS: Liver Length: 15.3 cm Gallbladder Wall: 0.1 cm CBD: 0.4 cm Spleen: 10.3 cm Right Kidney: 10.2 x 4.7 x 4.9 cm Left Kidney: 10.6 x 5.2 x 5.1 cm Pancreas: Tail obscured by overlying bowel gas Liver: wnl Gallbladder: Mobile echogenic foci Evidence for sonographic Trevino's sign: neg CBD: wnl Spleen: wnl Right Kidney: No hydronephrosis or masses seen Left Kidney: No hydronephrosis or masses seen Upper IVC: wnl Abd Aorta: No AAA visualized at time of scan The liver is homogenous. The intrahepatic portion of the IVC and proximal abdominal aorta are within normal limits. Cholelithiasis without evidence of wall thickening or stranding fluid. Negative sonog raphic Trevino's sign. Common bile duct is unremarkable. The visualized portions of the pancreas are homogenous. The spleen is unremarkable. Kidneys are symmetric and free of hydronephrosis. No renal lesions are seen. IMPRESSION: Cholelithiasis without ultrasound evidence for acute cholecystitis.
== END | disposition home or self-care (01) ==
LOC: RADUSWWP 10-03 07:54
PROVIDERS: ATTEND Internal Medicine
DX: K80.20 Calculus of gallbladder without cholecystitis without obstruction (principal)
CPT/HCPCS: 76700

== ENCOUNTER → 2023-10-15 | Outpatient (CLI) | payer OTHER | LOC: 3 N SLEEP 13:40 | PROVIDERS: ATTEND Internal Medicine | CPT/HCPCS: 99212 ==

== ENCOUNTER 2023-10-21 15:36 | Emergency (ER) | payer OTHER | END 2023-10-21 15:58 | disposition left against medical advice (07) | LOC: EC 15:36 | DX: Z53.21 Procedure and treatment not carried out due to patient leaving prior to being seen by health care provider (principal) | CPT/HCPCS: 99499 ==

== ENCOUNTER 2024-01-29 08:30 | Day surgery (SDC) | payer OTHER ==
[2024-01-24 15:11] VITALS: BMI 35.5
[~2024-01-29 08:30] MED LIST: DEXAMETHASONE SOD PHOSPHATE 4 MG/ML 1 ML VIAL IV ONE
[2024-01-29 09:03] VITALS: TEMP 97.4
[2024-01-29] MEDS: IV FLUID CONTINUATION 1,000 ML IV ONE ×3 (09:08→13:33)
[2024-01-29] MEDS: LACTATED RINGERS 1,000 ML IV SCH (09:08)
[2024-01-29] MEDS: HEPARIN SODIUM,PORCINE 5,000 UNIT/ML 1 ML VIAL SQ PRN (09:17)
[2024-01-29] MEDS: ONDANSETRON 4 MG/2 ML VIAL IVP ONE (09:17)
[2024-01-29] MEDS: ACETAMINOPHEN TAB 500 MG TAB PO PRN (09:17)
[2024-01-29] MEDS ORDERED: PROPOFOL 10 MG/ML 20 ML VIAL IV ONE (10:55)
[2024-01-29] MEDS ORDERED: SUCCINYLCHOLINE CHLORIDE 200 MG/10 ML VIAL IV ONE (10:55)
[2024-01-29] MEDS ORDERED: MIDAZOLAM 2 MG/2 ML VIAL ONE (10:55)
[2024-01-29] MEDS ORDERED: KETOROLAC 15 MG/ML 1 ML VIAL ONE (10:55)
[2024-01-29] MEDS ORDERED: NEOSTIGMINE 1 MG/ML 10 ML VIAL ONE (10:55)
[2024-01-29] MEDS ORDERED: LIDOCAINE 1% INJ 10MG/ML (20 ML MDV) ONE (10:55)
[2024-01-29] MEDS ORDERED: fentaNYL (PF) 50 MCG/ML 2 ML AMP ONE (10:55)
[2024-01-29] MEDS ORDERED: ROCURONIUM 10 MG/ML (5 ML VIAL) IV ONE (10:55)
[2024-01-29] MEDS ORDERED: GLYCOPYRROLATE 0.2 MG/ML 2 ML VIAL ONE (10:55)
[2024-01-29] MEDS: LIDOCAINE 1%-EPI 1:100,000 20 ML VIAL SQ ONE (11:18)
--- NOTE | 2024-01-29 11:50 | P.OP ---
Date of Procedure: 01/29/24 Preoperative Diagnosis: Cholecystitis Postoperative Diagnosis: Cholecystitis Procedure(s) Performed: Laparoscopic cholecystectomy Anesthesia: MAC Surgeon: Apolinar Guillen Estimated Blood Loss (ml): 5 Pathology: other (Gallbladder) Condition: stable Disposition: PACU Description of Procedure: The patient's placed on the operative table in the supine position. The patient received general endotracheal anesthesia. His abdomen was prepped with sterile fashion. An infraumbilical skin incision was made. The Veress needles positioned into the peritoneal cavity. Position of the Veress needle was confirmed with a positive drop test. The abdomen was then insufflated. After adequate insufflation a 5 mm trochars placed. Cavity. Next the laparoscope placed. Cavity. A 8 mm robotic trocar was placed in the left mid abdomen. A a 8 mm robotic trochars placed in the right lateral position and then the right mid abdomen position. The patient was then placed in reverse Trendelenburg. Patient with was docked to the robot. There were adhesions to the dome of the gallbladder. These were lysed using the hook cautery. The gallbladder fundus was then grasped with a pro-grasp grasper. And then the gallbladder was retracted cephalad. There were adhesions along the body of the gallbladder. These were lysed with sharp dissection. The fundus of the gallbladder was then grasped in the lateral traction was placed in the fundus. And then using blunt and sharp dissection the cystic duct was identified. Using firing applied the cystic duct was identified. A critical view of safety was achieved. The cystic duct was seen entering the common bile duct the common hepatic duct was seen. The cystic duct had been completely dissected and then the cystic duct was clipped and divided. The cystic artery was then identified and then clipped and divided. The gallbladder was then removed from liver bed using left cautery. The gallbladder was placed in a 5 mm Endo Catch bag. The liver bed was hemostasis. There is no bleeding seen. The abdomen was irrigated. No bleeding was seen. The patient was then undocked from the robot. The gallbladder was extracted through the umbilical port site. The umbilical port site was then closed with 0 Ethibond suture. The trochars withdrawn. Skin was closed interrupted 3-0 Monocryl suture. Dermabond dressing applied. Patient top she will was sent to recovery room in stable condition.
[2024-01-29] MEDS: HYDROmorphone 0.5 MG/0.5 ML SYRINGE IVP PRN (12:26)
[2024-01-29 14:31] VITALS: BP 133/71; PULSE 47; RESP 18
[2024-01-29] MEDS: ONDANSETRON ODT 4 MG TAB PO STA (15:03)
== END 2024-01-29 15:19 | disposition home or self-care (01) ==
LOC: OR 08:30
PROVIDERS: ATTEND Surgery
DX: K80.12 Calculus of gallbladder with acute and chronic cholecystitis without obstruction (principal); I10 Essential (primary) hypertension; E78.5 Hyperlipidemia, unspecified; J45.909 Unspecified asthma, uncomplicated; G47.33 Obstructive sleep apnea (adult) (pediatric); K21.9 Gastro-esophageal reflux disease without esophagitis; F90.9 Attention-deficit hyperactivity disorder, unspecified type; Z79.899 Other long term (current) drug therapy; Z88.8 Allergy status to other drugs, medicaments and biological substances
CPT/HCPCS: 81025; 88304; 47562; J2250; J0330; J1644; J2710; J0690; J2405; J2003; J3010; J1885; J2704; J1171; J1596

== ENCOUNTER → 2024-07-21 | Outpatient (CLI) | payer OTHER ==
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
== END | disposition home or self-care (01) ==
LOC: RADMRIMAIN 16:11
PROVIDERS: ATTEND Internal Medicine
DX: G93.5 Compression of brain (principal); Z87.820 Personal history of traumatic brain injury
CPT/HCPCS: 70553; A9585

== ENCOUNTER → 2024-08-27 | Outpatient (CLI) | payer OTHER ==
[2024-08-27 10:59] VITALS: BP 119/83; PULSE 74; RESP 18; TEMP 98.3
--- NOTE | 2024-08-27 17:33 | P.PROGSL ---
Subjective DATE: 08/27/2024 FOLLOW UP VISIT. Patient with obstructive sleep apnea hypopnea syndrome return to sleep center for follow-up visit. Information from previous visit have been reviewed. Patient continued to have symptoms of significant excessive daytime sleepiness. Patient was not able to use CPAP equipment every night secondary to mask problems. The patient does not have significant problems with the mask, PAP unit and humidification. [place] sleepiness scale is an extremely high range of 21. I checked information from PAP unit. PAP unit pressure 4-11 cm H2O. Usage is 27%, average 1.5 hours per night. Leak is 10.2 l/m, which is in acceptable range. Apnea Hypopnea Index is 0.8, which is normal. MEDICATIONS have been reviewed, please see below. During physical exam: GENERAL: A pleasant patient without any distress. VITAL SIGNS: Please see below, weight is 183.6 lbs. HEENT: PERRLA, EOMI.low position of soft palate, Mallapati [] . NECK: Supple. No JVD. LUNGS: Clear to percussion and to auscultation. Good air exchange. No wheezing or rhonchi. HEART: S1, S2 regular. ABDOMEN: Soft and nontender.[] EXTREMITIES: No clubbing or cyanosis. CASING MAN: Awake, alert, and oriented x3. No focal deficit. Impressions: 1. Obstructive sleep apnea-hypopnea syndrome. Patient demonstrated low compliance with treatment. 2. Extremely high excessive daytime sleepiness with [place] Sleepiness Scale 21 dictate necessity to include narcolepsy in differential diagnosis. 3. ADHD. 4. Hyperlipidemia. 5. Hypertension. 6. History of thyroid tumor. 7. History of Chiary malformation. 8. Allergy. 9. History of asthma. 10. History of iron deficiency anemia. Plan: 1. Continue using PAP equipment every night for the whole night. 2. Sleep hygiene with regular time in bed for at least 7.5-8 hours 3. PAP unit should stay lower then position of the head. 4. Advised patient to remove all remaining water from humidifier canister daily and make it dry after each usage. Refill canister with fresh distilled water before each usage. 5. Watching weight. 6. Precautions related to driving. No driving if feel any sleepiness. 7. I will maintain prescription for PAP supplies including mask, tube, filters. 8. Follow up visit in 2 months or earlier if patient has any problems. 9. Patient will continue treatment with Adderall 20 mg twice a day for ADHD and significant excessive daytime sleepiness. We will consider multiple sleep latency test. Thank you very much for allowing me to participate in the management of your patient. Yaya Hairston MD, PhD, FAASM. Diplomat of [place] [employer], Sleep Medicine Board by [employer] [facility] cc: Glen Whalen MD Objective - Vital Signs Vital Signs: Vital Signs Temp 98.3 F 08/27/24 10:56 Pulse 74 08/27/24 10:56 Resp 18 08/27/24 10:56 BP 119/83 08/27/24 10:56 Pulse Ox 97 08/27/24 10:56 FiO2 Intake & Output 08/26/24 08/27/24 08/27/24 18:59 06:59 18:59 Weight 83.178 kg Home Medications: Home Medications Medication Instructions Recorded Confirmed Type Omeprazole 20 mg PO HS 01/24/24 08/11/24 History lisinopriL [Zestril] 20 mg PO HS 01/24/24 08/11/24 History Celecoxib [CeleBREX] 200 mg PO HS 08/11/24 08/11/24 History amLODIPine [Norvasc] 2.5 mg PO HS 08/11/24 08/11/24 History
== END ==
LOC: 3 N SLEEP 10:22
PROVIDERS: ATTEND Internal Medicine
DX: G47.33 Obstructive sleep apnea (adult) (pediatric) (principal); F90.9 Attention-deficit hyperactivity disorder, unspecified type; E78.5 Hyperlipidemia, unspecified; I10 Essential (primary) hypertension; T78.40XA Allergy, unspecified, initial encounter; Z85.850 Personal history of malignant neoplasm of thyroid; Z87.09 Personal history of other diseases of the respiratory system; Z86.2 Personal history of diseases of the blood and blood-forming organs and certain disorders involving the immune mechanism; Z88.8 Allergy status to other drugs, medicaments and biological substances; Z99.89 Dependence on other enabling machines and devices
CPT/HCPCS: 99212